=== PATIENT | male | born 1995 | race Caucasian/White ===

== ENCOUNTER 2021-05-08 14:04 | Emergency (ER) | payer OTHER ==
[~2021-05-08] VITALS: Ht 182.9 cm; Wt 118.0 kg
[2021-05-08] MEDS ORDERED: HYDROCODONE/ACETAMINOPHEN 5/325MG TABLET PO ONE (14:15)
[2021-05-08] MEDS ORDERED: KETOROLAC 60MG/2ML VIAL IM ONE (15:15)
[2021-05-08] MEDS ORDERED: IBUP-2029 MT (16:01)
[2021-05-08] MEDS ORDERED: CYCL5TAB MT (16:01)
[2021-05-08 16:09] VITALS: BP 140/86
== END 2021-05-08 16:07 | disposition home or self-care (01) ==
LOC: ER 14:15
DX: M54.50 Low back pain, unspecified (principal)
CPT/HCPCS: 72110; 96372; 99283; J1885